=== PATIENT | female | born 1965 | race Caucasian/White ===

== ENCOUNTER 2018-03-25 16:12 | Emergency (ER) | payer OTHER, MEDICAID ==
[~2018-03-25] VITALS: Ht 172.7 cm; Wt 77.1 kg
[~2018-03-25 16:12] MED LIST: ACETAMINOPHEN-1 EAC1 PO; ADDERALL 20 MG20 MG PO; BACTRIM DS TAB1 EACH PO; BACTROBAN15 GM TP; EFFEXOR XR150 MG PO; FLEXERIL PO; HYDROCODON-ACE1 EAC7 PO; HYDROCODONE-AP1 EAC6 PO; IBUPROFEN 800800 M1 PO; PAXIL10 MG; PERCOCET 5-3251 EACH PO; PREDNISONE 10 M10 MG PO; ROBAXIN 750 MG750 M1 PO; TRAMADOL 50 MG50 MG PO; ULTRAM 50MG TAB50 MG PO; VENLAFAXIN75 MG/1 T2 PO
[2018-03-25] MEDS ORDERED: SUBOXONE 12 MG1 EACH PO (16:33)
[2018-03-25] MEDS ORDERED: IBUPROFEN 600600 M1 PO (17:49)
[2018-03-25 18:00] VITALS: BP 122/86
== END 2018-03-25 18:01 | disposition home or self-care (01) ==
LOC: M.ERS 16:12
DX: S93.692A Other sprain of left foot, initial encounter (principal); F32.9 Major depressive disorder, single episode, unspecified; F98.8 Other specified behavioral and emotional disorders with onset usually occurring in childhood and adolescence; Z85.41 Personal history of malignant neoplasm of cervix uteri; W18.39XA Other fall on same level, initial encounter; Y93.89 Activity, other specified; Y92.89 Other specified places as the place of occurrence of the external cause; Y99.8 Other external cause status

== ENCOUNTER 2019-02-18 19:54 | Emergency (ER) | payer OTHER ==
[~2019-02-18 19:54] MED LIST changes: +CLONAZEPAM 1 MG1 M1 PO; +IBUPROFEN 600600 M1 PO; +SUBOXONE 12 MG1 EACH PO; +ZANTAC 150MG T150 MG PO
== END 2019-02-18 20:16 ==
LOC: M.ERS 19:54
DX: Z02.89 Encounter for other administrative examinations (principal)

== ENCOUNTER 2021-05-16 23:21 | Emergency (ER) | payer OTHER ==
[~2021-05-16] VITALS: Ht 172.7 cm; Wt 65.8 kg
[2021-05-16] MEDS ORDERED: SUBOXONE (23:29)
[2021-05-16] MEDS ORDERED: EFFEXOR (23:29)
[2021-05-17] MEDS ORDERED: INDOMETHACIN 2525 MG PO (00:35)
[2021-05-17] MEDS ORDERED: KEFLEX250 MG PO (00:35)
[2021-05-17 00:44] VITALS: BP 128/78
== END 2021-05-17 00:46 | disposition home or self-care (01) ==
LOC: M.ERS 23:21
DX: M79.89 Other specified soft tissue disorders (principal); F32.9 Major depressive disorder, single episode, unspecified; Z79.899 Other long term (current) drug therapy

== ENCOUNTER 2021-07-09 21:16 | Emergency (ER) | payer OTHER, MEDICAID ==
[~2021-07-09] VITALS: Ht 172.7 cm; Wt 65.8 kg
[~2021-07-09 21:16] MED LIST changes: +EFFEXOR; +INDOMETHACIN 2525 MG PO; +KEFLEX250 MG PO; +SUBOXONE
[2021-07-09 21:23] VITALS: BP 128/86
== END 2021-07-09 22:39 | disposition home or self-care (01) ==
LOC: M.ERS 21:16
DX: S50.11XA Contusion of right forearm, initial encounter (principal); F32.9 Major depressive disorder, single episode, unspecified; Z79.899 Other long term (current) drug therapy; X50.0XXA Overexertion from strenuous movement or load, initial encounter; Y93.89 Activity, other specified; Y92.89 Other specified places as the place of occurrence of the external cause; Y99.8 Other external cause status